=== PATIENT | female | born 1955 | race Caucasian/White ===

== ENCOUNTER → 2023-09-13 09:24 | Outpatient (REF) | payer MEDICARE, OTHER, SELFPAY | LOC: HWWDC 09:24 | PROVIDERS: ATTENDING PHYSICIAN Obstetrics & Gynecology; FAMILY PHYSICIAN Internal Medicine | DX: Z12.31 Encounter for screening mammogram for malignant neoplasm of breast (principal) | CPT/HCPCS: 77063; 77067 ==

== ENCOUNTER → 2023-10-09 10:50 | Outpatient (REF) | payer MEDICARE, OTHER, SELFPAY ==
[2023-10-09 12:48] LABS: % Basophils 0.4 % (0-2); % Immature Granulocytes 0.4 % (0-0.5); % Lymphocytes 29.3 % (20.5-51.1); % Monocytes 11.2 % (1.7-9.3); % Neutrophils 55.7 % (42.2-75.2); Absolute Eosinophils 0.3 10^3/uL (0-0.7); Absolute Lymphocytes 2.9 10^3/uL (1.2-3.4); Absolute Monocytes 1.1 10^3/uL (0.1-0.6); Absolute Neutrophils 5.4 10^3/uL (1.4-6.5); Hematocrit 40.6 % (37.0-47.0); Hemoglobin 13.9 g/dL (12.0-16.0); Mean Corp Hgb Conc. 34.2 g/dL (33.0-37.0); Mean Corpuscular Hgb 30.1 pg (27.0-31.0); Mean Corpuscular Volume 87.9 fL (81.0-99.0); Mean Platelet Volume 10.9 fL (7.4-10.4); Nucleated Red Blood Cells % 0 %; Platelet Count 286 10^3/uL (130-400); Red Blood Cell Count 4.62 10^6/uL (4.20-5.40); Red Cell Dist. Width 12.8 % (11.5-14.5); White Blood Cell Count 9.7 10^3/uL (4.8-10.8)
[2023-10-09 12:58] LABS: INR 1.43; PT 17.3 Sec (11.4-14.6)
[2023-10-09 12:59] LABS: APTT 40.1 Sec (23.4-35.0)
[2023-10-09 13:34] LABS: Blood Urea Nitrogen 21 mg/dl (7-17); Calcium 9.9 mg/dl (8.4-10.2); Carbon Dioxide 26 mmol/L (22-30); Chloride 100 mmol/L (98-107); Glucose 96 mg/dl (70-99); Potassium 4.3 mmol/L (3.5-5.1); Sodium 137 mmol/L (135-145); eGFR > 60.00
== END ==
LOC: REG 10:50
PROVIDERS: ATTENDING PHYSICIAN Internal Medicine; FAMILY PHYSICIAN Internal Medicine
DX: Z01.818 Encounter for other preprocedural examination (principal); H93.A9 Pulsatile tinnitus, unspecified ear; R79.1 Abnormal coagulation profile; E11.9 Type 2 diabetes mellitus without complications
CPT/HCPCS: 36415; 80048; 83036; 85025; 85610; 85730; 93005

== ENCOUNTER 2024-03-30 10:55 | Inpatient (IN) | payer MEDICARE, OTHER, SELFPAY ==
[2024-03-30] VITALS (13 sets, daily range): BP systolic 114–137; BP diastolic 56–122; BMI 29.8; BMI 37.7
--- NOTE | 2024-03-30 07:27 | EDRN ---
the pt was received from previous shift supervisor RN, the pt is resting in stretcher in the lowest position, side rails up x2, all thompson within reach, HOB elevated, no s/s of distress, the pt has c/o 8/10 left leg/knee/summers pain, this RN notified
Lorena, VS WNL, will continue to monitor the pt closely
--- NOTE | 2024-03-30 08:18 | ED.GENMED ---
History of Present Illness
General
Chief Complaint: Fall
Source: patient and spouse
Time Seen by Provider: 03/30/24 07:17
History of Present Illness
History of Present Illness:
68-year-old female presents to the emergency room complaining of left knee pain. Patient states that she was climbing on a stepstool to fix a [place] decorations that was askew. In order to reach it she also leaned over and put 1 leg on a
rocking chair which became unstable causing her to fall. She denies any head strike. She denies any other injuries other than the left knee. Patient has been unable to weight-bear. Of note she does have a history of pulmonary embolisms and is on
lifelong anticoagulation. She takes Xarelto which she last took yesterday.
Phy Exam
Physical Exam
Physical Exam:
General: Awake, Alert, Oriented X3. No acute distress.
Vitals: unremarkable
Head: Atraumatic
Eyes: Pupils equal, EOMI
Throat: Airway intact, no exudates
Neck: Trachea midline
Lungs: Clear and equal b/l
Heart: Regular rate, no murmurs
Abd: Soft, Nontender, No pulsatile mass
Neuro: Nonfocal
Skin: Warm, dry, no rash
Extremities: pulses equal b/l, no edema. Swelling left knee, tenderness over the proximal tibia and fibula.
Course
Orders/Labs/Results
Orders:
Orders
03/30/24 02:02
CR Knee - Left 4 Or More View* Urgent
Comment:
Reason For Exam: fall, pain
CR Leg Tibia/fibula Left 2 Vw Urgent
Comment:
Reason For Exam: fall, pain
03/30/24 08:14
Lower Ext Left wo Contrast CT [CT Lower Ext W/o Iv Cont Lt] Urgent
Comment:
Reason For Exam: evaluate tibial plat fx
03/30/24 08:15
Morphine Sulfate 4 mg IV NOW STA
03/30/24 08:46
Type+Screen Urgent
Basic Metabolic Panel Urgent
Complete Blood Count/With Diff Urgent
03/30/24 09:18
ABO2 Urgent
BBK Wristband Number:
Associate notified that ABO2 has been ordered: [id number]
Date: 03/30/24
Time: 09:04
Hydroponics Grower ID: [id number]
03/30/24 Lunch
Regular
At Your Request: Full Participation
Does patient need a safe tray?: No
03/30/24 10:27
Knee Immobilizer Left-Treatmen ONCE
Ketorolac [Toradol] 15 mg IV NOW STA
03/30/24 10:35
Admit/Transfer Patient As Directed
Co-Sign Provider:
Level of Care: Inpatient admission
Assign to:: Medical/Surgical
Physician / Group: Hospitalist
Diagnosis: tibial plateau fracture
Reason for Hospitalization: .
Expected length of stay greater than two midnights?: Yes
ELOS- Estimated Length of Stay in days: 3
I certify the patient meets the requirements for IP care: Yes
PRN Pain Medication Management As Directed
May give lesser potent ordered pain med per pt: Yes
preference::
Protocol:: Medication orders for pain may be administered in a
manner that supports deferring to patient preference
when the pt is:
- Requesting an ordered lesser potent pain medication.
Least to most potent pain medications are defined
as: acetaminophen < NSAID < tramadol < opioids
(morphine, oxycodone, hydromorphone).
- Requesting a lesser dose of the same medication IF
ORDERED.
- Requesting a less intrusive route of administration
if both routes are prescribed by the provider (PO <
IV).
03/30/24 10:38
Code Status As Directed
Resuscitation Status: Full Code
Chest [CR Chest - 2 Views ] Stat
Comment:
Reason For Exam: pre-op
03/30/24 12:49
Acetaminophen [Tylenol] 1,000 mg PO Q6HPRN PRN
HYDROmorphone [Dilaudid] 0.5 mg IV Q4HPRN PRN
03/30/24 12:49
Consult Orthopedic [ORTHOPEDIC CONSULT] Routine
Consulting Provider: Anthony French
Was physician already notified: Yes
Reason for consult: Left tibial plateau fracture
VTE Contraindication Routine
VTE Mechanical Device Contraindication: Medical Contraindication
Pharmocologic Contraindication: Medical Contraindication
03/31/24 Breakfast
NPO
Allow oral meds: Yes
Allow clear liquids: No
Abnormal Lab Results
03/30/24
08:46
WBC 14.0 H 10^3/uL
(4.8-10.8)
Abs Immat Gran (auto) 0.1 H 10^3/uL
(0-0.05)
Absolute Neuts (auto) 9.9 H 10^3/uL
(1.4-6.5)
Absolute Monos (auto) 1.4 H 10^3/uL
(0.1-0.6)
Lymphocytes % 18.2 L %
(20.5-51.1)
Monocytes % 10.0 H %
(1.7-9.3)
BUN 18 H mg/dl
(7-17)
Glucose 107 H mg/dl
(70-99)
03/30/24 08:46
03/30/24 08:46
Vital Signs
Initial and Last Documented VS:
Initial Vital Signs
Temp Pulse Resp BP Pulse Ox
98.5 F 90 18 132/89 98
03/30/24 01:55 03/30/24 01:55 03/30/24 01:55 03/30/24 01:55 03/30/24 01:55
Last Documented Vital Signs
Temp Pulse Resp BP Pulse Ox
98.2 F 85 19 137/76 97
03/30/24 13:00 03/30/24 13:00 03/30/24 13:00 03/30/24 13:00 03/30/24 13:00
MDM/Problems Addressed
Differential Diagnosis Includes:
Patellar fracture, femur fracture, tibial plateau fracture, ligamentous injury
MDM/Problems Addressed:
Imaging shows fracture of the left tibial plateau. It appears fairly significant. A CT was obtained to further delineate the anatomy of the fracture. Case discussed with Dr. Bernal who is on-call for orthopedics. CT shows a fracture which is
complex and will require ORIF. Patient mated to the hospital service given her history of anticoagulation and pulmonary embolisms.
Chronic conditions affecting care: HTN and Other (PE)
*Radiology
Radiology exam reviewed: preliminary read by ED provider (tibial plateau fracture noted on my review of x-rays ) and radiology read reviewed
*Pulse Oximetry
Patient hypoxic: no
*Critical Care Note
Total Time (30-74mins, 75-104mins- exclusive of procedures): Not Applicable
Patient Management
Social determinants of health affecting care: Living situation and Strong social support
ED Attending Note
-
Portions of this chart may have been created with voice recognition software.� Occasional wrong word or��sound alike� substitutions may have occurred due to the inherent limitations of voice recognition software.
Discharge Plan
Departure
Patient Disposition: Admit
Date of Disposition: 03/30/24
Time of Disposition: 10:31
Admit to: Med/Surg
Presentation/result/management discussed w/ accepting MD/DO: Hospitalist
Condition: Fair
Discharge Problem:
Fracture of tibial plateau
Interventions
Interventions:
*Risk Screen - Suicide Last Done: 03/30/24 01:55
*General Assessment Last Done: 03/30/24 01:55
*Neglect/Abuse Screening Last Done: 03/30/24 01:55
ED- Fall Risk Assessment Last Done: 03/30/24 06:55
*ED COVID-19 Vaccine History Last Done: 03/30/24 07:26
*Nursing Disposition Last Done: 03/30/24 11:59
ED-Musculoskeletal Assessment Last Done: 03/30/24 06:55
ED- Neurological Assessment Last Done: 03/30/24 06:55
ED-Skin Assessment Last Done: 03/30/24 06:55
Discharge Date and Time
Discharge Date/Time: 03/30/24 12:33
[2024-03-30] MEDS: MORPHINE SULFATE 4 MG IV (08:52)
[2024-03-30 09:14] LABS: % Basophils 0.2 % (0-2); % Eosinophils 0.8 % (0-6); % Immature Granulocytes 0.5 % (0-0.5); % Lymphocytes 18.2 % (20.5-51.1); % Neutrophils 70.3 % (42.2-75.2); Absolute Eosinophils 0.1 10^3/uL (0-0.7); Absolute Immature Granulocytes 0.1 10^3/uL (0-0.05); Absolute Lymphocytes 2.6 10^3/uL (1.2-3.4); Absolute Monocytes 1.4 10^3/uL (0.1-0.6); Absolute Neutrophils 9.9 10^3/uL (1.4-6.5); Hematocrit 39.4 % (37.0-47.0); Hemoglobin 13.4 g/dL (12.0-16.0); Mean Corpuscular Hgb 30.5 pg (27.0-31.0); Mean Corpuscular Volume 89.7 fL (81.0-99.0); Mean Platelet Volume 9.9 fL (7.4-10.4); Nucleated Red Blood Cells % 0 %; Platelet Count 286 10^3/uL (130-400); Red Blood Cell Count 4.39 10^6/uL (4.20-5.40); Red Cell Dist. Width 12.9 % (11.5-14.5)
[2024-03-30 09:27] LABS: Blood Urea Nitrogen 18 mg/dl (7-17); Calcium 9.5 mg/dl (8.4-10.2); Carbon Dioxide 30 mmol/L (22-30); Chloride 100 mmol/L (98-107); Estimated Creatinine Clearance 103 ml/min; Glucose 107 mg/dl (70-99); Sodium 138 mmol/L (135-145); eGFR > 60.00
--- NOTE | 2024-03-30 10:29 | EDRN ---
the pt was received from CT scan, the pt is resting in stretcher in the lowest position, side rails up x2, call thompson within reach, HOB elevated, no s/s of distress, the pt requested new ice bags for her left knee/leg/thigh, this RN provided new ice
bags, VS WNL, Dr. Carrillo was at the pts bedside updating the pt on the plan of care, will continue to monitor the pt closely
--- NOTE | 2024-03-30 10:35 | HPS.HSE ---
Family Physician
-
Family Physician: Dwaine Edwards
Chief Complaint
-
Fall with left knee pain
History of Present Illness
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 She sustained left knee pain. Imaging studies showed Complex Schatzker type II lateral tibial plateau fracture. Patient denied head trauma. She takes Xarelto for history of PE.
Medical History
Past Medical History
Past Medical History: Reports Other (Pulmonary embolus, Diabeter, Hy pertension, hyperlipidemia, hypothyroidism. )
Past Surgical History: Reports Other (No recent major surgery)
Social History
Tobacco: Non-smoker
Alcohol: None
Drug: None
Living: With Family
Employment: Retired
Family History
Family History: Not pertinent
Allergies / Home Medications
Allergies reflects when Allergies were last updated in [facility].
Home Medications with original date entered in [facility]
Allergy/Medication List:
Allergies
Allergy/AdvReac Type Severity Reaction Status Date / Time
meperidine [From Demerol] Allergy Unknown Verified 03/30/24 01:55
Review of Systems
-
History Source: Patient
A 12 point ROS was completed and negative except as noted: Yes
Constitutional: Denies Fever
EENT: Denies Sore Throat
Respiratory: Denies Cough
Cardiac: Denies Chest Pain
Abdomen/GI: Denies Abdominal Pain
: Denies Dysuria
Musculoskeletal: Reports Joint Pain
Skin: Denies Itching
Neurological: Denies Dizzy
Endocrine: Denies Temp Intolerance
Hematologic/Lymphatic: Denies Bruising
Psych: Denies Panic Disorder
Physical Exam
Vital Signs
Vital Signs
Temp Pulse Resp BP Pulse Ox
98.5 F 83 16 128/56 96
03/30/24 01:55 03/30/24 06:49 03/30/24 06:49 03/30/24 06:49 03/30/24 07:26
Physical Exam
General: No Apparent Distress, Comfortable and Pain (Left knee)
HEENT: Moist mucous membranes and Atraumatic
Respiratory: Clear
Cardiac: S1/S2
GI: Soft and Non Tender
Genito-urinary: No Bloody Urine
Musculoskeletal: No Clubbing, No Cyanosis and No Edema
Skin: Warm; No Jaundice
Neuro: AO x 3
Psych: Calm and Intact Judgment/Insight
Laboratory Results
-
03/30/24 08:46
03/30/24 08:46
Impression/Plan
-
68 years old female presented with left knee injury
#Left lateral tibial plateau fracture
Admit the patient to the hospital
Start the patient on pain medication including Tylenol and Dilaudid, consult orthopedic, will likely need surgery. N.p.o. past midnight
Holding Xarelto. Will get chest x-ray and EKG as baseline.
Appreciate orthopedic help
# Pre- operative evaluation
No history of CAD or pulmonary disease. No angina. She had blood clot many years ago and is taking low dose Xarelto for prevention.
No prohibitive factors to fracture repair.
Pre-op chest x ray and EKG.
# Leukocytosis, reactive. No fever
# Primary hypertension
Hold Losartan and HCTZ for NPO/ surgery, resume afterwards
Add PRN hydralazine
# Hyperlipidemia, no changes intended.
# Diabetes
Hold Metformin for surgery
Add ISS
She takes Ozempic ( almost a week since last dose).
#History of PE many years ago. Hold Xarelto. Patient reported that her PE was many years ago and no recent event. Will order chest x-ray
#CODE STATUS, full code
Total time spent to see the patient, examine the patient, review data and lab results, discuss the treatment plan with patient, ER doctor, nursing staff around 75 minutes
[2024-03-30] MEDS: TORADOL 15 MG IV (11:00)
--- NOTE | 2024-03-30 12:47 | PTCARENOTE ---
Pt received from ED via stretcher. Pt AAOX3. Pt was able to pull herself from the stretcher to bed. Pt oriented to staff, call light and environment.
--- NOTE | 2024-03-30 16:14 | CON.ORTHO ---
Consultation
-
Date/Time Consultation Requested: Mar 26
Date/Time Consultation Performed: Mar 26
Requesting Provider: Nolan
Performing Provider: Dariela for [facility]
Reason for Consultation: Left lateral tibial plateau fracture
Consultation - Orthopedics
History
HPI:
Requested in consult by Dr. Francisco to this very pleasant 68 y/o white female with a PMH of HTN, Hypothyroid, Hyperlipids, DM2, PE on lifelong Xarelto (last dose Mar 26 AM). She was on a stepstool fixing some [place] rome and stepped onto a
rocking chair with her right leg which resulted in a fall. She has immediate pain in her right knee. She was unable to weightbear and crawled to the phone to call her . Denies prodrome, headstrike, LOC. She was allison to [facility] where xrays and
correlating CT confirmed a left LTPFx. She was placed in an immobilizer and has been admitted to Dr. Francisco' service. Of note she does have a history of right LTPFx with surgical correction 17 years ago. She also tells me her left knee was bothering
her about 6 weeks ago and had a steroid injection via an Orthopaedist at [facility].
Past Medical History
HTN
Hypothyroid
Hyperlipids
DM2
Pulmonary Embolus
Surgical History:
Right lateral tibial plateau fracture ORIF 17 years ago
Social History:
Social ETOH
Denies smoking, illicit drugs
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
Family History:
Noncontributory
Allergies / Home Medications
Allergy/AdvReac Type Severity Reaction Status Date / Time
meperidine [From Demerol] Allergy Unknown Verified 03/30/24 01:55
�Medication �Instructions �Recorded
Prn De3 Dry Eye Rush 1 cap PO QPM 03/30/24
Restore Eye Promise Eye Vit 2 cap PO DAILY 03/30/24
fexofenadine 180 mg tablet 180 mg PO DAILY 03/30/24
hydrochlorothiazide 12.5 mg tablet 12.5 mg PO DAILY 03/30/24
levothyroxine 112 mcg tablet 112 mcg PO DAILY 03/30/24
(Synthroid)
losartan 50 mg tablet 50 mg PO DAILY 03/30/24
metformin 500 mg tablet 500 mg PO BID 03/30/24
rivaroxaban 10 mg tablet (Xarelto) 10 mg PO DAILY 03/30/24
rosuvastatin 10 mg tablet 10 mg PO QPM 03/30/24
semaglutide 2 mg/dose (8 mg/3 mL) 2 mg SC MO 03/30/24
subcutaneous pen injector (Ozempic)
therapeutic multivitamin 1 tab PO DAILY 03/30/24
Vital Signs / Lab Results
Temp Pulse Resp BP Pulse Ox
98.3 F 85 19 124/82 96
03/30/24 15:10 03/30/24 15:10 03/30/24 15:10 03/30/24 15:10 03/30/24 15:10
03/30/24 08:46
03/30/24 08:46
Assessment / Plan
PE: Afeb. Bedrest. KI in place LLE. Skin intact. Expected edema. Generalized pain to palpation about the knee. Deferred ROM due to known fracture. Calf soft, nontender. DNVI LLE.
Diagnostics: Xrays and CT confirm a left lateral tibial plateau fracture (Schatzker II)
Impression: ASHISH
Plan: Discussed at length with the patient her situation. Fortunately and unfortunately she is familiar, given similar injury with subsequent surgery 17 years ago on the right. RBAs of nonoperative and operative management discussed. After accepting
all the proposed risks of surgical correction she has agreed to proceed. Her last dose of Xarelto was yesterday (Mar 26) AM. Her last dose of Ozempic was Mar 26. Discussed this with Dr. Francisco who agrees she is an acceptable risk for the OR. We
will tentatively plan to proceed tomorrow AM ~0800 with ORIF of her left lateral tibial plateau as the OR and Dr. French's availability permits. Discussed the post-op and rehab course, including anticipated WB restrictions post-operatively.
Surgical and blood consents have been signed and placed to the patient's chart. She will be NPO pMN. Type and screen complete. Operative site marked as the left knee. 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 KI to remain. NWB. Elevation and ice as much as possible to help with
swelling in anticipation of surgery tomorrow. Will resume Xarelto post-operatively per Dr. Francisco. Will follow
[2024-03-30] MEDS: DILAUDID 0.5 MG IV ×2 (16:46→23:13)
[2024-03-30] MEDS: CRESTOR 10 MG PO (16:46)
[2024-03-30 16:51] LABS: Glucose - Point of Care 120 mg/dl (70-99)
[2024-03-30] MEDS: NOVOLOG FLEXPEN-MODERATE RESISTANCE SC (16:51)
[2024-03-30 21:56] LABS: Glucose - Point of Care 109 mg/dl (70-99)
[2024-03-31] VITALS (8 sets, daily range): BP systolic 107–137; BP diastolic 66–79
[2024-03-31] MEDS: DILAUDID 0.5 MG IV ×3 (04:30→20:06)
[2024-03-31] MEDS: SYNTHROID 112 MCG PO (05:35)
[2024-03-31 06:26] LABS: Blood Urea Nitrogen 16 mg/dl (7-17); Calcium 8.9 mg/dl (8.4-10.2); Carbon Dioxide 28 mmol/L (22-30); Chloride 100 mmol/L (98-107); Estimated Creatinine Clearance 80 ml/min; Glucose 115 mg/dl (70-99); Potassium 3.9 mmol/L (3.5-5.1); Sodium 135 mmol/L (135-145); eGFR > 60.00
[2024-03-31 06:29] LABS: Hematocrit 33.4 % (37.0-47.0); Hemoglobin 11.5 g/dL (12.0-16.0); Mean Corp Hgb Conc. 34.4 g/dL (33.0-37.0); Mean Corpuscular Hgb 30.6 pg (27.0-31.0); Mean Corpuscular Volume 88.8 fL (81.0-99.0); Mean Platelet Volume 9.9 fL (7.4-10.4); Platelet Count 208 10^3/uL (130-400); Red Blood Cell Count 3.76 10^6/uL (4.20-5.40); Red Cell Dist. Width 12.9 % (11.5-14.5); White Blood Cell Count 9.6 10^3/uL (4.8-10.8)
[2024-03-31 08:00] LABS: Glucose - Point of Care 105 mg/dl (70-99)
[2024-03-31] MEDS: NOVOLOG FLEXPEN-MODERATE RESISTANCE SC ×3 (08:02→16:18)
--- NOTE | 2024-03-31 08:37 | W.PN.UPDATE ---
Update Note
Progress Note Update
Patient to remain NPO. For OR this AM via Dr. French for ORIF left lateral tibial plateau, assuming she remains optimized medically for surgery. Will follow
[2024-03-31 11:13] LABS: Glucose - Point of Care 97 mg/dl (70-99)
--- NOTE | 2024-03-31 11:24 | W.PN.HOSP.TC ---
Today's Communication/Plan
-
NPO
PRN Hydralazine
Pain medicine
Assessment / Plan
Assessment / Plan
Physical Exam
General: No Apparent Distress, Comfortable and Pain (Left knee)
HEENT: Moist mucous membranes and Atraumatic
Respiratory: Clear
Cardiac: S1/S2
GI: Soft and Non Tender
Genito-urinary: No Bloody Urine
Musculoskeletal: No Clubbing, No Cyanosis and No Edema
Skin: Warm; No Jaundice
Neuro: AO x 3
Psych: Calm and Intact Judgment/Insight
68 years old female presented with left knee injury
#Left lateral tibial plateau fracture
Admit the patient to the hospital
Start the patient on pain medication including Tylenol and Dilaudid, consult orthopedic, will likely need surgery. N.p.o. past midnight
Holding Xarelto. Will get chest x-ray and EKG as baseline.
Appreciate orthopedic help
# Pre- operative evaluation
No history of CAD or pulmonary disease. No angina. She had blood clot many years ago and is taking low dose Xarelto for prevention.
No prohibitive factors to fracture repair.
EKG showed sinus rhythm with PVCs. Old septal infarct.
Chest x-ray showed no acute pathology, mild left bibasilar atelectasis.
No hypoxia.
# Leukocytosis, reactive. No fever
# Primary hypertension
Hold Losartan and HCTZ for NPO/ surgery, resume afterwards
Add PRN hydralazine
# Hyperlipidemia, no changes intended.
# Diabetes
Hold Metformin for surgery
Add ISS
She takes Ozempic ( almost a week since last dose).
#History of PE many years ago. Hold Xarelto. Patient reported that her PE was many years ago and no recent event. Will order chest x-ray
#CODE STATUS, full code
Total time spent to see the patient, examine the patient, review data and lab results, discuss the treatment plan with patient, ortho, nursing staff around 75 minutes
Anticipated Discharge: 24 - 48 hours
Subjective/Interval History
-
Date of Service: March 31, 2024
no chest pain
no sob
Objective Data
-
Labs:
Laboratory Results
03/31/24
05:33
WBC 9.6
Hgb 11.5 L
Hct 33.4 L
Plt Count 208 D
Sodium 135
Potassium 3.9
Chloride 100
Carbon Dioxide 28
BUN 16
Creatinine 0.7
Glucose 115 H
Calcium 8.9
Vital Signs:
Vital Signs
Temp Pulse Resp BP Pulse Ox
98.1 F 77 18 107/66 95
03/31/24 07:00 03/31/24 07:00 03/31/24 07:00 03/31/24 07:00 03/31/24 07:00
I&O
03/30/24 03/31/24 04/01/24
06:59 06:59 06:59
Intake Total 780 / 780 0 / 0
Balance 780 / 780 0 / 0
[2024-03-31 11:36] LABS: Glycohemoglobin (HgbA1c) 6.1 % (4.0-5.6)
[2024-03-31 14:27] LABS: Glucose - Point of Care 91 mg/dl (70-99)
[2024-03-31] MEDS: DILAUDID 0.25 MG IV ×2 (14:38→14:55)
--- NOTE | 2024-03-31 14:57 | CM ---
Spoke with Tim.Pt in OR. Pt is independent at home.She drives car.She lives in a 1 story home with 1 step to enter.No adaptive devices.
She gonzalez never had VN nor snf hx.
Pharmacy [facility]
PCP Dr Thompson
PLAN Pt in OR will need PT OT for dc planning.
[2024-03-31] MEDS: NSS 1000 IV (15:15)
[2024-03-31 16:17] LABS: Glucose - Point of Care 133 mg/dl (70-99)
[2024-03-31] MEDS: CRESTOR 10 MG PO (17:02)
[2024-03-31] MEDS: XARELTO 5 MG PO (17:02)
[2024-03-31] MEDS: SENOKOT 17.2 MG PO (20:05)
[2024-03-31] MEDS: COLACE 100 MG PO (20:05)
[2024-03-31] MEDS: ANCEF 5 IV (20:16)
[2024-03-31 21:48] LABS: Glucose - Point of Care 223 mg/dl (70-99)
[2024-04-01] VITALS (7 sets, daily range): BP systolic 114–136; BP diastolic 59–76; PULSE 85; O2SAT 97
[2024-04-01] MEDS: DILAUDID 0.5 MG IV ×2 (01:49→06:32)
[2024-04-01] MEDS: NSS 1000 IV ×2 (04:10→16:45)
[2024-04-01] MEDS: ANCEF 5 IV (05:03)
[2024-04-01] MEDS: SYNTHROID 112 MCG PO (05:04)
[2024-04-01] MEDS: COLACE 100 MG PO ×2 (07:23→18:26)
[2024-04-01] MEDS: ORETIC 12.5 MG PO (07:24)
[2024-04-01] MEDS: COZAAR 50 MG PO (07:24)
[2024-04-01] MEDS: SENOKOT 17.2 MG PO ×2 (07:24→18:26)
[2024-04-01 08:08] LABS: Glucose - Point of Care 132 mg/dl (70-99)
[2024-04-01] MEDS: NOVOLOG FLEXPEN-MODERATE RESISTANCE SC ×2 (08:11→12:06)
[2024-04-01 08:46] LABS: Hematocrit 32.8 % (37.0-47.0); Hemoglobin 11.2 g/dL (12.0-16.0); Mean Corp Hgb Conc. 34.1 g/dL (33.0-37.0); Mean Corpuscular Hgb 30.4 pg (27.0-31.0); Mean Corpuscular Volume 88.9 fL (81.0-99.0); Mean Platelet Volume 9.8 fL (7.4-10.4); Platelet Count 220 10^3/uL (130-400); Red Blood Cell Count 3.69 10^6/uL (4.20-5.40); Red Cell Dist. Width 12.6 % (11.5-14.5); White Blood Cell Count 15.1 10^3/uL (4.8-10.8)
--- NOTE | 2024-04-01 09:04 | W.PN.HOSP.TC ---
Today's Communication/Plan
-
see bold
Assessment / Plan
Assessment / Plan
68 years old female presented with left knee injury
#Left lateral tibial plateau fracture
Status post ORIF 03/31/[address] Frnech
Continue NWB LLE, KI to remain
PT/OT - rec HH, pain control
Xarelto 1/2 doses x 3 days then resume full anticoagulation, per primary team
Dressing/KI to remain in place until follow-up
#Constipation
Increase laxatives
#Leukocytosis, reactive. No fever
Monitor
#Primary hypertension
Continue losartan and HCTZ
#Hyperlipidemia, no changes intended.
# Diabetes
Hold Metformin for surgery
She takes Ozempic (almost a week since last dose)
Carb controlled diet, sliding scale insulin
#Obesity due to excess calories
Affects all aspects of care
#History of PE many years ago
DVT prophylaxis�Xarelto
Full code
Total time spent to see the patient on the floor, examine the patient, review data and lab results, discuss treatment plan with patient, nursing staff around 45 minutes.
Physical Exam
General: No acute distress
HEENT: Normocephalic, Atraumatic, EOMI, MMM
Respiratory: Clear to Auscultation bilaterally
Cardiac: Normal S1/S2, Regular Rate and Rhythm
GI: Soft, Nontender, Nondistended, Normal Bowel Sounds
Extremities: No Clubbing, Cyanosis
Left knee immobilizer in place
Neuro: Nonfocal/Grossly Intact
Psych: Calm, Cooperative
Derm: No Visible lesions
Anticipated Discharge: Within 24 hours
Subjective/Interval History
-
Date of Service: April 01, 2024
Patient reports being constipated. Her left knee pain is tolerable, 5 out of 10 in intensity. No nausea, no vomiting. No chest pain, no shortness of breath. No fever.
Objective Data
-
Labs:
Laboratory Results
04/01/24
08:15
WBC 15.1 H
Hgb 11.2 L
Hct 32.8 L
Plt Count 220
Sodium Pending
Potassium Pending
Chloride Pending
Carbon Dioxide Pending
BUN Pending
Creatinine Pending
Glucose Pending
Calcium Pending
Vital Signs:
Vital Signs
Temp Pulse Resp BP Pulse Ox
97.8 F 80 18 125/63 97
04/01/24 07:10 04/01/24 07:10 04/01/24 07:10 04/01/24 07:10 04/01/24 07:10
I&O
03/31/24 04/01/24 04/02/24
06:59 06:59 06:59
Intake Total 780 / 780 1839
Balance 780 / 780 1839
[2024-04-01 09:18] LABS: Blood Urea Nitrogen 10 mg/dl (7-17); Calcium 8.4 mg/dl (8.4-10.2); Carbon Dioxide 26 mmol/L (22-30); Chloride 101 mmol/L (98-107); Estimated Creatinine Clearance 93 ml/min; Glucose 122 mg/dl (70-99); Potassium 4.2 mmol/L (3.5-5.1); Sodium 136 mmol/L (135-145); eGFR > 60.00
[2024-04-01] MEDS: CITROMA 300 ML PO (10:49)
--- NOTE | 2024-04-01 11:30 | W.PN.ORTHO ---
Today's Communication / Plan
-
Continue treatment per the primary team, appreciate their care
Dispo per CM, home with VNS vs. Rehab
Continue NWB LLE, KI to remain
PT/OT
Xarelto 1/2 doses x 3 days then resume full anticoagulation, per primary team
Dressing/KI to remain in place until follow-up
ice and elevation for pain control, narcs as needed
Outpatient Ortho follow-up in 2 weeks for staple removal
Assessment
.
Distal Motor Intact: Yes
Dressing:
Clean, dry and intact. Dressing and KI in place
Assessment:
POD#1 left lateral tibial plateau ORIF
Overall doing/feeling well
Calf soft, nontender
Plan
.
Surgery / Date: Left LTP ORIF Mar 26 ([facility])
DVT Prophylaxis: Other (Xarelto)
Activity:
Out of bed. NWB LLE
PT/OT
Discharge Plan: Other (per CM)
Subjective
.
.:
Patient resting comfortably this AM. Mild pain endorsed to the left knee
Vital Signs and Labs
.
Vital Signs and Labs:
Lab Results
04/01/24 08:15
04/01/24 08:15
Temp Pulse Resp BP Pulse Ox
97.9 F 83 17 118/59 95
04/01/24 11:10 04/01/24 11:10 04/01/24 11:10 04/01/24 11:10 04/01/24 11:10
[2024-04-01] MEDS: ROXICODONE 5 MG PO (11:40)
[2024-04-01 11:55] LABS: Glucose - Point of Care 141 mg/dl (70-99)
[2024-04-01] MEDS: ROXICODONE 10 MG PO ×2 (15:43→22:10)
[2024-04-01 16:54] LABS: Glucose - Point of Care 151 mg/dl (70-99)
--- NOTE | 2024-04-01 17:08 | CM ---
Spoke with PTMagda, who stated that patient is min assist for transfers and ambulation with walker for short distances. Patient lives in a home that is handicap accessible, and has a w/c. She has a supportive spouse. Per Magda patient will need a
rolling walker and patient's daughter is getting a commode.
Plan: Case management will continue to follow and assist with discharge planning. Home with spouse. May need walker. Will check for VN needs.
[2024-04-01] MEDS: CRESTOR 10 MG PO (18:20)
[2024-04-01] MEDS: XARELTO 5 MG PO (18:26)
[2024-04-01] MEDS: NOVOLOG FLEXPEN-MODERATE RESISTANCE 1 UNITS SC (19:02)
[2024-04-01 21:57] LABS: Glucose - Point of Care 171 mg/dl (70-99)
--- NOTE | 2024-04-01 23:00 | PTCARENOTE ---
This RN assumed care of this patient from off going nurse at 2300.
[2024-04-02] VITALS: BP 148/80
[2024-04-02] MEDS: DILAUDID 0.5 MG IV (00:02)
[2024-04-02] MEDS: SYNTHROID 112 MCG PO (05:30)
--- NOTE | 2024-04-02 06:09 | W.PN.ORTHO ---
Today's Communication / Plan
-
68-year-old female POD #2 Left Lateral Tibial Plateau ORIF 03/31/[address] French.
- Continue NWB LLE, KI to remain.
- PT/OT.
- Hemoglobin this AM pending. Continue to monitor.
- Xarelto 1/2 doses x 3 days then resume full anticoagulation, per primary team.
- Ice and elevation for edema control. Pain control per primary team.
- Continue treatment per the primary team, appreciate their care.
- Dispo per , home with VNS ?
- Outpatient Ortho follow-up in 2 weeks for staple removal. Orthopedic surgery will sign off at this time. Please reengage with any further questions or concerns.
Assessment
.
Distal Motor Intact: Yes
Dressing:
Clean, dry and intact. Dressing and KI in place.
Able to plantarflex and dorsiflex left ankle.
Calf is soft and nontender.
NVI distally.
Assessment:
POD#2 left lateral tibial plateau ORIF.
Plan
.
Surgery / Date: Left LTP ORIF Mar 26 ([facility])
DVT Prophylaxis: Other (Xarelto)
Activity:
Out of bed.
PT/OT. NWB LLE.
Discharge Information:
Appreciate CM.
Subjective
.
.:
Patient resting comfortably in bed. Denies any new complaints or concerns. Reports left knee pain yesterday evening, improved with current medication regimen. Reports left knee pain controlled at this time. Denies any paresthesias.
Vital Signs and Labs
.
Vital Signs and Labs:
Lab Results
04/01/24 08:15
Temp Pulse Resp BP Pulse Ox
98.0 F 79 16 148/80 94
04/01/24 23:00 04/01/24 23:00 04/01/24 23:00 04/02/24 00:00 04/01/24 23:00
[2024-04-02] MEDS: ROXICODONE 5 MG PO (07:09)
[2024-04-02] MEDS: TYLENOL 1000 MG PO (07:09)
[2024-04-02 07:30] VITALS: BP 121/64
[2024-04-02 08:00] LABS: Hematocrit 32.9 % (37.0-47.0); Hemoglobin 11.1 g/dL (12.0-16.0); Mean Corp Hgb Conc. 33.7 g/dL (33.0-37.0); Mean Corpuscular Hgb 30.7 pg (27.0-31.0); Mean Corpuscular Volume 90.9 fL (81.0-99.0); Mean Platelet Volume 9.9 fL (7.4-10.4); Platelet Count 239 10^3/uL (130-400); Red Blood Cell Count 3.62 10^6/uL (4.20-5.40); White Blood Cell Count 13.2 10^3/uL (4.8-10.8)
[2024-04-02] MEDS: COLACE 100 MG PO (08:04)
[2024-04-02] MEDS: COZAAR 50 MG PO (08:04)
[2024-04-02] MEDS: ORETIC 12.5 MG PO (08:04)
[2024-04-02] MEDS: SENOKOT PO (08:08)
[2024-04-02] MEDS: NOVOLOG FLEXPEN-MODERATE RESISTANCE SC ×2 (08:14→12:04)
[2024-04-02 08:16] LABS: Glucose - Point of Care 113 mg/dl (70-99)
--- NOTE | 2024-04-02 08:56 | W.PN.HOSP.TC ---
Today's Communication/Plan
-
Medically stable for discharge today
Assessment / Plan
Assessment / Plan
68 years old female presented with left knee injury
#Left lateral tibial plateau fracture
Status post ORIF 03/31/[address] French
Continue NWB LLE, KI to remain
PT/OT - rec HH, pain control
Xarelto 1/2 doses x 3 days then resume full anticoagulation 04/03/24
Dressing/KI to remain in place until follow-up
Medically stable for discharge, follow-up with PCP in 1 week, and orthopedic surgery in 2 weeks
#Constipation
Resolved with laxatives
#Leukocytosis, reactive. No fever
Monitor
#Primary hypertension
Continue losartan and HCTZ
#Hyperlipidemia, no changes intended.
# Diabetes
Resume metformin and Ozempic upon discharge
Carb controlled diet, sliding scale insulin
#Obesity due to excess calories
Affects all aspects of care
#History of PE many years ago
DVT prophylaxis�Xarelto
Full code
Physical Exam
General: No acute distress
HEENT: Normocephalic, Atraumatic, EOMI, MMM
Respiratory: Clear to Auscultation bilaterally
Cardiac: Normal S1/S2, Regular Rate and Rhythm
GI: Soft, Nontender, Nondistended, Normal Bowel Sounds
Extremities: No Clubbing, Cyanosis
Left knee immobilizer in place
Neuro: Nonfocal/Grossly Intact
Psych: Calm, Cooperative
Derm: No Visible lesions
Anticipated Discharge: Today
Subjective/Interval History
-
Date of Service: April 02, 2024
Patient was able to work with PT, her pain with movement is 8, pain at rest is 2. She had a bowel movement. No chest pain, no shortness of breath. No fever, no vomiting.
Objective Data
-
Labs:
Laboratory Results
04/02/24
07:33
WBC 13.2 H
Hgb 11.1 L
Hct 32.9 L
Plt Count 239
Vital Signs:
Vital Signs
Temp Pulse Resp BP Pulse Ox
98.0 F 83 16 121/64 94
04/01/24 23:00 04/02/24 08:04 04/01/24 23:00 04/02/24 08:04 04/01/24 23:00
I&O
04/01/24 04/02/24 04/03/24
06:59 06:59 06:59
Intake Total 1840 / 1840 2700 / 2700 480 / 480
Balance 1840 / 1840 2700 / 2700 480 / 480
[2024-04-02 09:45] VITALS: BP 129/63; PULSE 76; O2SAT 92
[2024-04-02] MEDS: ROXICODONE 10 MG PO (11:52)
[2024-04-02 12:00] LABS: Glucose - Point of Care 192 mg/dl (70-99)
--- NOTE | 2024-04-02 12:31 | W.DCSUMMARY ---
Discharge Summary
Discharge Data
Date of Admission: 03/30/24
Date of Discharge: 04/02/24
-
Pending Results: No
Hospital Course
Discharge diagnosis:
Left lateral tibial plateau fracture
Constipation
Leukocytosis, likely reactive
Essential hypertension
Type 2 diabetes
Obesity due to excess calories
Hyperlipidemia
Consults: Orthopedic surgery
Procedures:
03/31/2024 Open reduction internal fixation, left lateral tibial plateau fracture by Dr. French
Hospital course:
68-year-old female with a past medical history of PE on Xarelto, hypertension, hyperlipidemia, and diabetes who was admitted for a left lateral tibial plateau fracture after a mechanical fall. Patient was seen in conjunction with orthopedic
surgery, and underwent ORIF on 03/31/2024. She did well postoperatively. She was seen in conjunction with PT, who recommends home care. Patient is medically stable for discharge. Orthopedic surgery recommends Xarelto 5 mg daily through
04/02/2024, then resuming her previous home dose 10 mg daily starting 04/03/2023. She is to be nonweightbearing on the left lower extremity and to keep her knee immobilizer in place until seen by orthopedic surgery. She needs to follow-up with her
primary care doctor in 1 week, and orthopedic surgery in the office in 2 weeks.
Disposition: Home with home care
Discharge planning: Required 51-minute
Discharge Plan
-
Patient Disposition: Home with Home Care
Discharge Diagnosis/Procedures: Left tibial plateau fracture status post surgery
Condition: Good
Diet: Diabetic, Carb Controlled
Activity: Do not bear weight L leg
Additional Activity: Nonweightbearing left lower extremity, keep knee immobilizer in place at all times
Driving Restrictions: Not until seen by your Dr
Other Services: PT and OT
Activity Restrictions/Additional Instructions:
Take Xarelto 5 mg in the evening on 04/02/2024.
Resume Xarelto 10 mg on 04/03/2024.
Keep knee immobilizer in place until seen by orthopedic surgery.
Follow-up with your primary care doctor in 1 week, follow-up with orthopedic surgery in the office in 2 weeks.
Referrals:
Dwaine Edwards MD [Family Provider] - in one week
Anthony French MD [Active] - in two weeks
Prescriptions:
New
oxycodone 5 mg Tablet
5 mg PO Q4HPRN PRN (Reason: mild pain) Qty: 30 0RF
polyethylene glycol 3350 17 gram/dose powder
17 g PO DAILY Qty: 510 0RF
Continued
losartan 50 mg Tablet
50 mg PO DAILY
metformin 500 mg Tablet
500 mg PO BID
therapeutic multivitamin Tablet
1 tab PO DAILY
fexofenadine 180 mg Tablet
180 mg PO DAILY
levothyroxine [Synthroid] 112 mcg Tablet
112 mcg PO DAILY
rosuvastatin 10 mg Tablet
10 mg PO QPM
hydrochlorothiazide 12.5 mg Tablet
12.5 mg PO DAILY
Xarelto 10 mg Tablet
10 mg PO DAILY
Ozempic 2 mg/dose (8 mg/3 mL) Pen Injector
2 mg SC MO
Prn De3 [facility] [place]
1 cap PO QPM
[facility]
2 cap PO DAILY
Discharge Orders:
Discharge Patient (As Directed); Ordered 04/02/24
Ordered By: Isidro Martinez
Discharge Date and Time
Discharge Date/Time: 04/02/24 16:00
Print Language: KAZAKH
[2024-04-02 15:30] VITALS: BP 121/60
--- NOTE | 2024-04-02 16:08 | VNURNOTE ---
Home Health Liaison spoke with patient to discuss [facility] nurse/therapy, visits, schedule and homebound status. Patient is agreeable and understands that visits at home will be 2-3 x per week to assess and teach medical management. Patient is aware
that [facility] will contact them for start of care in 1-2 days after discharge from . [facility] referral completed in [facility].
--- NOTE | 2024-04-02 17:15 | CM ---
Met with patient as there was an order in for discharge. She had no concerns. IMM signed and reviewed now on chart. Spouse transporting home.
== END 2024-04-02 16:00 | disposition home health service (06) | DRG 494 ==
LOC: 3 WEST ACU 10:55
PROVIDERS: Physician Assistant Surgical; ADMITTING PHYSICIAN Internal Medicine; ATTENDING PHYSICIAN Family Medicine; CONSULT PHYSICIAN Orthopaedic Surgery Hand Surgery; EMERGENCY PHYSICIAN Emergency Medicine; FAMILY PHYSICIAN Internal Medicine
PROC: 0QSH04Z Reposition Left Tibia with Internal Fixation Device, Open Approach (ICD-10-PCS; 2024-03-31)
DX: S82.142A Displaced bicondylar fracture of left tibia, initial encounter for closed fracture (principal); Z86.711 Personal history of pulmonary embolism; Z79.01 Long term (current) use of anticoagulants; W19.XXXA Unspecified fall, initial encounter; K59.00 Constipation, unspecified; I10 Essential (primary) hypertension; E78.5 Hyperlipidemia, unspecified; E11.9 Type 2 diabetes mellitus without complications; E66.09 Other obesity due to excess calories; Z68.37 Body mass index [BMI] 37.0-37.9, adult
CPT/HCPCS: 29505; 71046; 73564; 73590; 73700; 76000; 80048; 82962; 83036; 85025; 85027; 86850; 86900; 86901; 93005; 96374; 96375; 97116; 97163; 97167; 97530; 99285

== ENCOUNTER → 2024-09-09 10:35 | Outpatient (REF) | payer MEDICARE, OTHER, SELFPAY ==
[2024-09-09 12:04] LABS: Blood Urea Nitrogen 18 mg/dl (7-17)
== END ==
LOC: REG 10:35
PROVIDERS: ATTENDING PHYSICIAN Internal Medicine; OTHER PHYSICIAN Oral & Maxillofacial Surgery
DX: Z01.812 Encounter for preprocedural laboratory examination (principal)
CPT/HCPCS: 36415; 82565; 84520

== ENCOUNTER → 2024-09-11 08:51 | Outpatient (REF) | payer MEDICARE, OTHER, SELFPAY | LOC: RAD 08:51 | PROVIDERS: ATTENDING PHYSICIAN Oral & Maxillofacial Surgery; FAMILY PHYSICIAN Internal Medicine | DX: K13.79 Other lesions of oral mucosa (principal); R59.9 Enlarged lymph nodes, unspecified | CPT/HCPCS: 70492; Q9967 ==

== ENCOUNTER → 2024-09-17 15:21 | Outpatient (REF) | payer MEDICARE, OTHER, SELFPAY | LOC: WDC 15:21 | PROVIDERS: ATTENDING PHYSICIAN Obstetrics & Gynecology; FAMILY PHYSICIAN Internal Medicine | DX: Z12.31 Encounter for screening mammogram for malignant neoplasm of breast (principal) | CPT/HCPCS: 77063; 77067 ==

== ENCOUNTER → 2025-01-21 09:21 | Outpatient (REF) | payer MEDICARE, OTHER, SELFPAY | LOC: RAD 09:21 | PROVIDERS: ATTENDING PHYSICIAN Internal Medicine | DX: Z78.0 Asymptomatic menopausal state (principal) | CPT/HCPCS: 77080 ==